=== PATIENT | female | born 1960 | race African-American/Black ===

== ENCOUNTER 2022-10-16 13:35 | Day surgery (SDC) | payer OTHER, SELFPAY ==
[2022-10-11 15:12] VITALS: BMI 32.5
[2022-10-16 13:43] VITALS: BMI 31.7
[2022-10-16 13:47] VITALS: BMI 32.6
[2022-10-16 13:50] VITALS: BP 152/78; PULSE 77; RESP 18; TEMP 36.4; O2SAT 96
[2022-10-16] MEDS: Lactated Ringers 1,000 ML 100 ML IVCONT (14:11)
--- NOTE | 2022-10-16 14:12 | P.CONAN_ITS ---
Documented by User: Leti Reeder NP 10/15/22 10:51 HPI - Anesthesia Eval Consult details Narrative: 62yo F for Eye Muscle left lateral Rectus Recession, Left medial Rectus Resection PCP cleared [facility] Past Medical History Medical History Glaucoma HTN (hypertension) Insomnia Social History Social History Patient Tobacco Use Status: Never used Tobacco Use of substances other than those prescribed or required for medical reasons: No Are you DNR?: No Advance Directives: No Advance Directives Information Provided: Yes Meds Allergies Allergy/AdvReac Type Severity Reaction Status Date / Time No Known Allergies Allergy Verified 10/11/22 15:17 Home Medications Medication Instructions Recorded Confirmed Last Taken Type amlodipine 5 mg tablet 5 mg PO DAILY 10/11/22 10/11/22 Unknown History brimonidine 0.2 % eye drops 1 drp BID 10/11/22 10/11/22 Unknown History dorzolamide 22.3 mg-timolol 6.8 1 drp ophthalmic (eye) BID 10/11/22 10/11/22 Unknown History mg/mL eye drops melatonin 3 mg tablet 3 mg PO BEDTIME PRN insomnia 10/11/22 10/11/22 Unknown History netarsudil 0.02 %-latanoprost 1 drp ophthalmic (eye) BEDTIME 10/11/22 10/11/22 Unknown History 0.005 % eye drops ([facility]) Exam Exam Date and Time: October 15, 2022 1050 Height,Weight and Vital Signs: Height 5 ft 4.96 in Weight 88.4 kg Assessment and Plan Assessment Anesthesia Assessment: Chart Reviewed Documented by User: Aviva León DO 10/16/22 14:13 [facility] Past Medical History Medical History Glaucoma HTN (hypertension) Insomnia Surgical History History of Problems with Anesthesia: No Social History Social History Patient Tobacco Use Status: Never used Tobacco Use of substances other than those prescribed or required for medical reasons: No Are you DNR?: No Advance Directives: No Advance Directives Information Provided: Yes Meds Allergies Allergy/AdvReac Type Severity Reaction Status Date / Time No Known Allergies Allergy Verified 10/11/22 15:17 Home Medications Medication Instructions Recorded Confirmed Last Taken Type amlodipine 5 mg tablet 5 mg PO DAILY 10/11/22 10/11/22 Unknown History brimonidine 0.2 % eye drops 1 drp BID 10/11/22 10/11/22 Unknown History dorzolamide 22.3 mg-timolol 6.8 1 drp ophthalmic (eye) BID 10/11/22 10/11/22 Unknown History mg/mL eye drops melatonin 3 mg tablet 3 mg PO BEDTIME PRN insomnia 10/11/22 10/11/22 Unknown History netarsudil 0.02 %-latanoprost 1 drp ophthalmic (eye) BEDTIME 10/11/22 10/11/22 Unknown History 0.005 % eye drops ([facility]) Exam Exam Date and Time: October 16, 2022 1410 Height,Weight and Vital Signs: Height 5 ft 4.96 in Weight 88.4 kg Vital Signs Temperature 97.6 F 10/16/22 13:50 Pulse Rate 77 10/16/22 13:50 Respiratory Rate 18 10/16/22 13:50 Blood Pressure 152/78 H 10/16/22 13:50 Pulse Oximetry 96 10/16/22 13:50 Oxygen Delivery Method Room Air 10/16/22 13:50 Temperature 97.6 F 10/16/22 13:50 Pulse Rate 77 10/16/22 13:50 Respiratory Rate 18 10/16/22 13:50 Blood Pressure 152/78 H 10/16/22 13:50 Pulse Oximetry 96 10/16/22 13:50 Oxygen Delivery Method Room Air 10/16/22 13:50 Airway Mallampati Class: II TM Dist: >3cm Neck ROM: Full Loose/Missing/Broken Teeth: No Heart: S1S2 Lungs: CTAB Assessment and Plan Final Anesthetic Review History of Problems with Anesthesia: No NPO: Yes ASA Class: II Final Preanesthetic Review: No Changes in Pt Med Stat, Meds/Allgs Chart Reviewed, Consent Obtained/Reviewed and Anes Risks/Benef Reviewed Patient Risk: Low Procedure Risk: Low Anesthetic Plan Anesthetic Plan: GA and Agree w/ Assess. and Plan Disposition: Standard PACU
[2022-10-16 15:08] VITALS: BP 159/89; PULSE 92; RESP 20; TEMP 36.2; O2SAT 100
--- NOTE | 2022-10-16 15:10 | HO.OPHTHAL ---
Ophthalmology Operative Note Date of Service: 10/16/22 Narrative: Diagnosis left exotropia. Procedures 1. Recession of left lateral rectus muscle 9 mm 2. Resection of left medial rectus muscle [address] Acevedo anesthesia general complications none. The patient was brought to the operating room placed under general anesthesia. The left eye was prepped and draped in the usual sterile ophthalmic fashion. A lid speculum was placed in the eye and an incision was made down to bare sclera in the inferotemporal fornix. The lateral rectus muscle was hooked and secured with a double-armed Vicryl suture. The muscle was disinserted from the globe and reattached to a position 9 mm behind the original insertion. Conjunctiva was closed with interrupted Vicryl sutures. An incision was then made down to bare sclera in the inferonasal fornix. The medial rectus muscle was hooked and dissected free of its overlying fascial attachments. It was grasped at its insertion with a [place] muscle clamp and an 8 mm resection was marked off with cautery. The resection point was secured with a double-armed Vicryl suture and the distal muscle resected. The resection point was then drawn forward to the original insertion with the Vicryl suture. Conjunctiva was closed with interrupted Vicryl sutures. The patient was then awoken from general anesthesia and discharged to postoperative recovery in good condition.
[2022-10-16 15:13] VITALS: BP 174/89; PULSE 85; RESP 20; O2SAT 100
[2022-10-16 15:18] VITALS: BP 173/100; PULSE 83; RESP 20; O2SAT 100
[2022-10-16 15:23] VITALS: BP 177/92; PULSE 87; RESP 20; O2SAT 100
[2022-10-16] MEDS: Acetaminophen 325 MG TABLET 650 MG PO (15:29)
[2022-10-16 15:38] VITALS: BP 158/74; PULSE 73; RESP 20; TEMP 36.3; O2SAT 100
== END 2022-10-16 16:07 | disposition home or self-care (01) ==
PROVIDERS: Visit Provider Ophthalmology
PROC: (CPT 67312; principal; 2022-10-16 14:20)
DX: H50.112 Monocular exotropia, left eye (principal); H40.9 Unspecified glaucoma; I10 Essential (primary) hypertension; R73.03 Prediabetes; Z79.899 Other long term (current) drug therapy
CPT/HCPCS: 67312; J1100; J1885; J2405